=== PATIENT | female | born 1980 | race Caucasian/White ===

== ENCOUNTER 2016-08-02 10:13 | Outpatient (CLI) | payer OTHER ==
[~2016-08-02] VITALS: Ht 154.9 cm; Wt 63.4 kg
[~2016-08-02 10:13] MED LIST: AZIT250T94 PO; ONDA4TAB8 PO
[2016-08-02] MEDS ORDERED: CEPH500C PO (10:43)
[2016-08-02] MEDS ORDERED: ACET500T84 PO (10:43)
[2016-08-02] MEDS ORDERED: PRENAT PO (10:43)
[2016-08-02 10:44] VITALS: Ht 154.9 cm; Wt 63.4 kg
[2016-08-02 10:45] VITALS: BP 122/78; PULSE 96; RESP 18
[2016-08-02] MEDS ORDERED: HYDR30CR75 PR (12:51)
[2016-08-02] MEDS ORDERED: ACET500C5 PO (12:51)
[2016-08-02] MEDS ORDERED: DOCU-144 PO (12:51)
--- NOTE | 2016-08-02 13:12 | CONS ---
Date/Time of Note Date/Time of Note DATE: 08/02/16 TIME: 13:04 Consultation Date/Type/Reason Admit Date/Time August 02, 2016 OB triage consult This patient is a 36 years old 3 para 1 therapeutic 1 living 1. section Came to obstetrical triage complaining of a painful hemorrhoidal for 3 days On physical examination she is a well-developed well-nourished lady about 23 week. Her ear ear nose throat appear to be normal neck is normal no thyromegaly no lymph node enlargement anywhere in the body chest is clear to auscultation breasts examination is normal on abdominal examination the fundus measures about 33 cm, activity is palpable, heart rate is normal patient's blood pressure is 122/78 pulse rate of 96 temperature 98.1. On pelvic examination vulva and vagina appears to be normal cervix is closed no bleeding or discharge On rectal exam she has a tag of about 2.0 x 1 cm in the rectal area which is very painful making rectal exam extremely painful almost impossible . Disposition : due to the fact that the her physical exam was completely normal she was referred to emergency room for further evaluation and treatment of her hemorrhoidal tag. She is advised to return to her clinic in 1 week for continuation of her care Initial Consult Date Detailed Summary Eyes: No discharge, No no complaints, No other, No pain, No redness, No visual change ENT: No bleeding, No congestion, No discharge, No dysphagia, No no complaints, No other, No pain, No sore throat Respiratory: No cough, No no complaints, No other, No pain, No pleuritic pain, No shortness of breath, No sputum, No wheezing Cardiovascular: No chest pain, No edema, No lightheadedness, No no complaints, No orthopenea, No other, No palpitations, No paroxysmal nocturnal dyspnea Gastrointestinal: No blood, No constipation, No decreased appetite, No diarrhea , No flatus, No nausea, No no complaints, No other, No pain, No passing stool, No vomiting Genitourinary: other (A very painful hemorrhoidal tag about 2 x 1.5 cm) Musculoskeletal: No back pain, No bone/joint pain, No neck pain, No no complaints, No other, No restricted range of motion, No swelling Skin: No bruising, No erythema, No laceration, No no complaints, No other, No pruritis, No rash, No skin lesions Neurologic: No confusion, No dizziness, No focal-weakness, No headache, No no complaints, No other, No seizure, No syncope Lymphatic: No adenopathy, No lymphadema, No no complaints, No other, No tender nodes Psychological: No anxiety, No confusion, No depression, No nl mood/affect, No no complaints, No other, No suicidal Immunologic: No immunodeficiency, No no complaints, No other, No pruritis, No rhinitis, No urticaria Exam/Review of Systems Vital Signs Vitals Vital Signs Date Time Temp Pulse Resp B/P Pulse Ox O2 Delivery O2 Flow Rate FiO2 08/02/16 10:45 98.1 96 18 122/78 Room Air ARTEMIO GILES MD Aug 02, 2016 13:12
== END 2016-08-02 11:45 | disposition home or self-care (01) ==
LOC: OBT 10:13 → L-D 10:14 → OBT 11:45
PROVIDERS: ATTEND Obstetrics & Gynecology
DX: O22.42 Hemorrhoids in pregnancy, second trimester (principal); O09.522 Supervision of elderly multigravida, second trimester; Z3A.23 23 weeks gestation of pregnancy
CPT/HCPCS: G0463

== ENCOUNTER 2016-08-02 11:49 | Emergency (ER) | payer OTHER ==
[~2016-08-02] VITALS: Wt 63.0 kg
[~2016-08-02 11:49] MED LIST changes: +ACET500T84 PO; +CEPH500C PO; +PRENAT PO
[2016-08-02] MEDS ORDERED: ACETAMINOPHEN 500 MG TAB PO STA (12:49)
[2016-08-02] MEDS ORDERED: ACET500C5 PO (12:51)
[2016-08-02] MEDS ORDERED: DOCU-144 PO (12:51)
[2016-08-02] MEDS ORDERED: HYDR30CR75 PR (12:51)
--- NOTE | 2016-08-02 12:53 | ERD ---
ER Documentation Chief Complaint Date/Time DATE: 08/02/16 TIME: 12:52 Chief Complaint hemmrhoid for the past few days. getting more painful. no rectal bleeding. HPI This 36-year-old female complains of a painful hemorrhoid for the last 3 days. She denies any bleeding, fevers, vomiting. She is approximately 21 weeks by dates. ROS All systems reviewed and are negative except as per history of present illness. Medications Home Meds Active Scripts Docusate Sodium* (Colace*) 100 Mg Capsule, 100 MG PO BID, #40 CAP Prov:ABHAY COWART MD 08/02/16 Hydrocortisone Acetate* (Anusol-HC*) 30 Gm Cream.gm., 1 APPLIC FL TID for 10 Days, TUB Prov:ABHAY COWART MD 08/02/16 Acetaminophen* (Tylophen*) 500 Mg Capsule, 1 CAP PO Q6H Y for PAIN AND OR ELEVATED TEMP, #18 CAP Prov:ABHAY COWART MD 08/02/16 Reported Medications Acetaminophen (Q-Pap Extra Strength) 500 Mg Tablet, 500 MG PO, TAB 08/02/16 Cephalexin* (Cephalexin*) 500 Mg Capsule, 500 MG PO Q6, #28 CAP 08/02/16 Multivit/Min/Fol Ac/Iron/Pren* ( S*) 1 Tab Tab, 1 TAB PO DAILY, TAB 08/02/16 Allergies Allergies: Coded Allergies: No Known Drug Allergy (Verified Allergy, Mild, 11/21/14) PMhx/Soc History of Surgery: Yes (C-sec x1 ) Anesthesia Reaction: No Hx Neurological Disorder: No Hx Respiratory Disorders: No Hx Cardiac Disorders: No Hx Psychiatric Problems: No Hx Miscellaneous Medical Probl: No Hx Alcohol Use: No Hx Substance Use: No Hx Tobacco Use: No Physical Exam Vitals Vital Signs Date Time Temp Pulse Resp B/P Pulse Ox O2 Delivery O2 Flow Rate FiO2 08/02/16 11:51 98.4 87 20 95/53 97 Physical Exam Const: [] Alert, [id number]. Head: Atraumatic Eyes: Normal Conjunctiva ENT: Normal External Ears, Nose and Mouth. Neck: Full range of motion..~ No meningismus. Resp: Clear to auscultation bilaterally Cardio: Regular rate and rhythm, no murmurs Abd: Soft, non tender, non distended. Normal bowel sounds Skin: No petechiae or rashes. With the assistance of ward maid a rectal exam was performed. There is a large external hemorrhoid which is tender without evidence of thrombosis no active bleeding, warmth or erythema or fluctuance Back: No midline or flank tenderness Ext: No cyanosis, or edema Neur: Awake and alert Psych: Normal Mood and Affect Results 24 hrs Current Medications Medications (Trade) Dose Ordered Sig/Abbey Route PRN Reason Start Time Stop Time Status Last Admin Dose Admin Acetaminophen (Tylenol Tab) 500 mg ONCE STAT PO 08/02/16 12:49 08/02/16 12:50 DC Procedures/MDM Patient presents with acute external hemorrhoid without evidence of thrombosis no signs of abscess or additional complications. She will treated with Tylenol , Colace and Anusol at home and instructions for warm soaks. Patient is advised to follow-up with primary doctor return for bleeding, fevers, new worsening symptoms. The patient was stable with no new complaints during the ER course. Clinically, there is no current evidence to suggest meningitis, sepsis, acute abdomen, pneumonia, acute coronary syndrome, pulmonary embolism, or any other emergent condition appearing to require further evaluation or hospitalization. The patient should certainly return for any new or worsening symptoms per the aftercare instructions. They should otherwise follow-up with her primary care doctor for reevaluation this week. Departure Diagnosis: Primary Impression: Acute hemorrhoid Condition: Stable Patient Instructions: Hemorrhoids Additional Instructions: This is a warm bath at home. Recheck with primary doctor or recheck for new or worsening symptoms or bleeding per ABHAY COWART MD Aug 02, 2016 12:53
== END 2016-08-02 13:43 | disposition home or self-care (01) ==
LOC: FTE 11:49
DX: K64.9 Unspecified hemorrhoids (principal)
CPT/HCPCS: Z7502; Z7610; 99283